=== PATIENT | male | born 1970 | race Caucasian/White ===

== ENCOUNTER → 2016-10-16 | Outpatient (CLI) | payer SELFPAY ==
--- NOTE | 2016-10-17 09:02 | DI ---
RIGHT FOOT, 10/16/2016 3:43 PM: Clinical History: Closed displaced fracture of the fifth metatarsal bone. 1. Previous Exam: 09/03/2016; 09/18/2016. 3 weightbearing views are submitted. Since the last exam, there has been distraction of the fracture site in the proximal third of the fifth metatarsal bone. There is an estimated 2-3 mm gap present. Ca lcified is developing along the medial and lateral aspects of the fracture site, but no callus format ion is seen on the plantar surface or on the dorsomedial surface. Alignment and position are anatomic . Reading: There is evidence of healing at the fracture site, but there is more distraction. This film is approx imately greater than 5 weeks from the time of the initial injury and these changes may represent armen yed union.
== END ==
LOC: RAD 15:56
PROVIDERS: ATTEND Podiatrist Foot & Ankle Surgery
DX: S92.351D Displaced fracture of fifth metatarsal bone, right foot, subsequent encounter for fracture with routine healing (principal)
CPT/HCPCS: 73630

== ENCOUNTER → 2016-11-13 | Outpatient (CLI) | payer SELFPAY ==
--- NOTE | 2016-11-13 18:03 | DI ---
XR FOOT COMPLETE MIN 3VW,11/13/2016 4:31 PM: Clinical History: Prior fracture of the second metatarsal. Previous Exam: October 16, 2016 Findings: 3 weightbearing views of the right foot are obtained, and demonstrate a healing fracture of the right mid fifth metatarsal. There is some remaining surrounding soft tissues. Impression: Healing right fifth mid metatarsal fracture.
== END ==
LOC: MOB RAD 16:33
PROVIDERS: ATTEND Podiatrist Foot & Ankle Surgery
DX: S92.351D Displaced fracture of fifth metatarsal bone, right foot, subsequent encounter for fracture with routine healing (principal)
CPT/HCPCS: 73630

== ENCOUNTER → 2016-12-10 | Outpatient (CLI) | payer SELFPAY ==
--- NOTE | 2016-12-10 13:55 | DI ---
RIGHT FOOT, 12/10/2016 10:39 AM: Clinical History: Closed fracture of the fourth metatarsal bone. Previous Exam: 09/18/2016; 10/16/2016; 11/13/2016. 3 weightbearing views are submitted. There is a transverse fracture through the proximal third of the fifth metatarsal bone that shows a bony bridge along the lateral aspect of the fifth metatarsal bone . There is still a fracture lucency visible in the overall appearance is unchanged from 11/13/2016. Th e remainder of the foot examination is normal. No fracture of the fourth metatarsal bone is identifie d. Reading: Transverse fracture through the proximal third of the fifth metatarsal bone with anatomic alignment a nd position. The fracture lucency is still visible. Callus is seen to bridge along the lateral aspect of the fracture site. There has been no change.
== END ==
LOC: RAD 10:31
PROVIDERS: ATTEND Podiatrist Foot & Ankle Surgery
DX: S92.354D Nondisplaced fracture of fifth metatarsal bone, right foot, subsequent encounter for fracture with routine healing (principal)
CPT/HCPCS: 73630